=== PATIENT | female | born 2000 | race Caucasian/White ===

== ENCOUNTER 2023-06-23 08:20 | Outpatient (CLI) | payer OTHER ==
[2023-06-23 08:57] LABS: #Basophils 0.1 10x3/uL (0.0-0.2); #Eosinphils 0.2 10x3/uL (0.0-0.5); #Monocytes 0.6 10x3/uL (0.0-1.1); #Neutrophils 4.7 10x3/uL (1.5-8.4); %Basophils 0.6 % (0.0-2.0); %Eosinophils 2.3 % (0.0-6.0); %Lymphocytes 35.8 % (18.0-47.0); %Monocytes 6.6 % (0.0-10.0); %Neutrophils 54.6 % (40.0-75.0); Hematocrit 38.6 % (34.9-44.5); Hemoglobin 12.2 g/dL (12.0-15.5); Mean Corpuscular HGB CONC 31.6 g/dL (32.0-36.0); Mean Corpuscular Volume 88.7 fl (81.6-98.3); Mean Platelet Volume 9.5 fl (7.4-10.4); Platelet Count 318 10x3/uL (150-450); RBC Distribution Width 13.6 % (11.5-14.5); Red Blood Cell (RBC) Count 4.35 10x6/uL (3.90-5.03); White Blood Cell (WBC) Count 8.6 10x3/uL (3.5-10.5)
[2023-06-23 09:15] LABS: ALT (SGPT) 38 U/L (8-55); AST (SGOT) 22 U/L (5-34); Alkaline Phosphatase 66 U/L (40-110); Bilirubin, Direct 0.2 mg/dL (0.1-0.3); Bilirubin, Total 0.4 mg/dL (0.2-1.2); Protein, Total 7.2 g/dL (6.0-8.3)
[2023-06-23 09:21] LABS: BHCG - Serum Negative (NEGATIVE); Pregs Control Background? CLEAR/WHITE (CLR/WHITE); Pregs Control Bar Appear? YES (CONTROL BAR)
== END 2023-06-23 08:21 | disposition home or self-care (01) ==
LOC: LABBT 08:20
PROVIDERS: ATTEND Surgery
DX: Z01.812 Encounter for preprocedural laboratory examination (principal); K80.20 Calculus of gallbladder without cholecystitis without obstruction
CPT/HCPCS: 80076; 84703; 85025

== ENCOUNTER 2023-06-28 07:02 | Day surgery (SDC) | payer OTHER ==
[2023-06-23 08:44] VITALS: BMI 29.1
[2023-06-28] MEDS ORDERED: cefOXitin 2 GM VIAL ONE (08:43)
[2023-06-28] MEDS ORDERED: Sodium Chloride 0.9% 100 ML ONE (08:43)
[2023-06-28] MEDS ORDERED: Bupivacaine 0.25% HCL 30 ML VIAL ONE (09:16)
[2023-06-28] MEDS ORDERED: EPINEPHrine 1 MG/ML VIAL ONE (09:16)
[2023-06-28] MEDS ORDERED: fentaNYL PF 100 MCG/2 ML SYRINGE ONE (09:20)
[2023-06-28] MEDS ORDERED: Indocyanine Green 25 MG/10 ML VIAL ONE (09:23)
[2023-06-28] MEDS ORDERED: Midazolam HCl 2 mg/2 ml Vial ONE (09:27)
[2023-06-28] MEDS ORDERED: Ondansetron PF 4 MG/2 ML Vial ONE (09:36)
[2023-06-28] MEDS ORDERED: Lidocaine 1% PF 5 ML VIAL ONE (09:36)
[2023-06-28] MEDS ORDERED: Dexamethasone 20 MG/5 ML VIAL ONE (09:36)
[2023-06-28] MEDS ORDERED: PHENYLEPHRINE-NS 100 MCG/ML 10 ML SYRINGE ONE (09:36)
[2023-06-28] MEDS ORDERED: PROPOFOL 200 MG/20 ML VIAL ONE (09:36)
[2023-06-28] MEDS ORDERED: Rocuronium Bromide 10 MG/ML (10ML VIAL) ONE (09:36)
[2023-06-28] MEDS ORDERED: fentaNYL 50 mcg/mL 1 mL Vial ONE ×3 (10:57→11:36)
[2023-06-28] MEDS ORDERED: HYDROcodone/Acetaminophen 5/325 mg Tablet ONE (12:43)
== END 2023-06-28 13:40 | disposition home or self-care (01) ==
LOC: SDC 07:02
PROVIDERS: ATTEND Surgery
PROC: 0FT44ZZ Resection of Gallbladder, Percutaneous Endoscopic Approach (ICD-10-PCS; principal; 2023-06-28)
DX: K80.10 Calculus of gallbladder with chronic cholecystitis without obstruction (principal); K82.8 Other specified diseases of gallbladder; Z79.899 Other long term (current) drug therapy
CPT/HCPCS: 88304; J0171; J0694; J1100; J2250; J2405; J2704; J3010; J3490; S0020